=== PATIENT | female | born 1965 | race Caucasian/White ===

== ENCOUNTER → 2016-11-15 | Outpatient (CLI) | payer OTHER | LOC: BMCIMAGING 15:09 | PROVIDERS: ATTEND Internal Medicine | DX: Z12.31 Encounter for screening mammogram for malignant neoplasm of breast (principal); Z80.3 Family history of malignant neoplasm of breast | CPT/HCPCS: G0202 ==

== ENCOUNTER → 2017-12-03 | Outpatient (CLI) | payer OTHER | LOC: BMCIMAGING 07:21 | PROVIDERS: ATTEND Internal Medicine | DX: Z12.31 Encounter for screening mammogram for malignant neoplasm of breast (principal); Z80.3 Family history of malignant neoplasm of breast ==

== ENCOUNTER 2018-05-13 10:35 | Emergency (ER) | payer OTHER ==
--- NOTE | 2018-05-13 11:02 | EDPHY ---
HPI/HX/ROS/PE/MDM Narrative: CHIEF COMPLAINT: Hyponatremia HISTORY OF PRESENT ILLNESS: This patient is a 52 year old female with history of rheumatoid arthritis, hyponatremia, and depression. She arrives today with her neighbor for evaluation of hyponatremia after her PCP's office attempted to contact her with lab results earlier today. The patient herself reports that she feels completely asymptomatic now. She generally takes salt tablets for chronic hyponatremia and states she has been taking these as directed. The patient states she was unable to sleep last night until about 6am, and had disconnected her phone for that reason. She repeats that she feels well currently, though she endorses some constipation in the last few days. She denies history of hypertension, diabetes, kidney or liver problems. No fever, chills, chest pain, shortness of breath, palpitations, vomiting, diarrhea, urinary complaints, headache, lightheadedness. The patient's neighbor at bedside reports that the patient saw her subscription crew leader on Saturday and had routine lab work. The subscription crew leader reportedly called the PCP's office regarding results, including acute hyponatremia, and the PCP's office in turn tried to contact the patient. When they were unable to contact her, they called police for a welfare check. The patient's mother called the neighbor for assistance. There is some sense from the neighbor that patient is possibly an unreliable historian at this time. REVIEW OF SYSTEMS: A comprehensive 10 system review of systems is otherwise negative aside from elements mentioned in the history of present illness and medical decision making. PAST MEDICAL HISTORY: Rheumatoid arthritis. Depression (Klonopin, Ambien). History of hyponatremia. SOCIAL HISTORY: Neighbor at bedside. No tobacco, alcohol, or illicit drug use. PCP Dr. Arreaga. VITAL SIGNS: Reviewed by me GENERAL: Well-developed, well-nourished, resting comfortably in no respiratory distress. HEENT: Atraumatic. Eyes: No icterus, no injection. Mouth: dry teeth / mucous membranes. No erythema or lesions. Neck: supple with no adenopathy. LUNGS: Clear to auscultation bilaterally, no wheezes, rhonchi or rales. CARDIAC: Regular rate and rhythm, no rubs, murmurs or gallops. ABDOMEN: Soft, nontender, nondistended, bowel sounds normal. BACK: No CVA tenderness. EXTREMITIES: No trauma. No edema. Range of motion is normal throughout. NEURO: Alert and oriented, grossly nonfocal. SKIN: Warm and dry, no rash. PSYCHIATRIC: Normal mentation, no agitation. Portions of this note were transcribed by a biomedical manager. I personally performed a history, physical exam, medical decision making, and confirmed accuracy of information the transcribed note. ED Course: 52 y/o female with history of known hyponatremia presents for evaluation of acute low sodium. Dry mucous membranes on exam. Plan for labs including CBC, chemistries, UA, I-stat. 11:05 POC sodium low at 117. Plan to admit to ICU for management of hyponatremia. 12:20 Plan for repeat I-stat. 12:35 The hospital is currently on ICU advisory. Plan to transfer patient to another appropriate facility for hyponatremia. 12:[address] Mcintosh through [facility] regarding the patient. 12:57 Repeat POC sodium 120. Patient accepted at [facility] under Dr Vega. Transfered via ambance. Emtala form signed. Patient received a total of 1 liter NS over 2.5 hours in the ED MDM: Diff dx considered included hyponatremia, hypoglycemia, fluid overload, dehydration, lab error. - Data Points Laboratory Results: Laboratory Results 05/13/18 11:00 05/13/18 11:00 Medications Given: Discontinued Medications Sodium Chloride (Ns) 500 mls @ 500 mls/hr IV EDNOW ONE PRN Reason: Protocol Stop: 05/13/18 12:21 Last Admin: 05/13/18 11:30 Dose: 500 mls Sodium Chloride (Ns) 500 mls @ 1,000 mls/hr IV EDNOW ONE PRN Reason: Protocol Stop: 05/13/18 14:07 Last Admin: 05/13/18 14:12 Dose: 500 mls Point of Care Test Results: Chemistry 05/13/18 05/13/18 12:57 11:03 POC Sodium 120 mEq/L L mEq/L 117 mEq/L L* mEq/L (135-145) (135-145) POC Potassium 3.0 mEq/L L mEq/L 3.1 mEq/L L mEq/L (3.3-5.0) (3.3-5.0) POC Chloride 81 mEq/L L mEq/L 78 mEq/L L mEq/L (97-110) (97-110) POC BUN 12 mg/dL mg/dL 12 mg/dL mg/dL (7-23) (7-23) POC Creatinine 0.7 mg/dL mg/dL 0.8 mg/dL mg/dL (0.6-1.0) (0.6-1.0) POC Glucose 86 mg/dL mg/dL 93 mg/dL mg/dL (70-100) (70-100) ISTAT H&H 05/13/18 05/13/18 12:57 11:03 POC Hgb 15.3 gm/dL gm/dL 16.0 gm/dL gm/dL (12.6-16.3) (12.6-16.3) POC Hct 45 % % 47 % % (38-47) (38-47) General Time Seen by Provider: 05/13/18 10:47 Initial Vital Signs: Initial Vital Signs Temperature (C) 36.6 C 05/13/18 10:40 Heart Rate 73 05/13/18 10:40 Respiratory Rate 18 05/13/18 10:40 Blood Pressure 141/93 H 05/13/18 10:40 O2 Sat (%) 97 05/13/18 10:40 O2 Delivery Mode Room Air Allergies/Adverse Reactions: acetaminophen Allergy (Verified 05/13/18 10:40) "Skin Crawls" codeine Allergy (Verified 05/13/18 10:40) "Skin Crawls" diphenhydramine [From Benadryl] Allergy (Verified 05/13/18 10:40) Unknown promethazine [From Phenergan] Allergy (Verified 05/13/18 10:40) Unknown Home Medications: Medication Instructions Recorded Adalimumab [Humira] 40 mg SQ Q14D 01/23/18 Levothyroxine [Synthroid 100 mcg 100 mcg PO DAILY06 01/23/18 (*)] Sumatriptan Succinate [Imitrex] 100 mg PO DAILY PRN 01/23/18 Zolpidem Tartrate [Ambien] 10 mg PO HS 01/23/18 buPROPion XL [Wellbutrin 150mg XL] 300 mg PO DAILY 01/23/18 clonazePAM [klonoPIN (*)] 1.5 mg PO HS 01/23/18 Norgestimate-Ethinyl Estradiol 1 each PO DAILY 01/24/18 [Previfem Tablet] Sodium Bicarbonate [Na Bicarb] 650 mg PO TID 01/24/18 Gabapentin Enacarbil [Horizant] 1,200 mg PO DAILY@17 01/26/18 Departure - Departure Disposition: Acute Care Hospital Not [facility] Clinical Impression: Hyponatremia Condition: Fair Referrals: Angela Arreaga MD [Primary Care Provider] - As per Instructions Report Scribed for: Martha Jiménez Report Scribed by: Shelby Medina Date of Report: 05/13/18 Time of Report: 12:53
[2018-05-13 11:13] LABS: PLATELET COUNT 333 10^3/uL (150-400)
[2018-05-13] MEDS ORDERED: NS 500 ML IV ONE ×2 (11:22→13:38)
[2018-05-13 14:39] VITALS: BP 153/77
== END 2018-05-13 14:32 | disposition short-term general hospital (02) ==
DX: E87.1 Hypo-osmolality and hyponatremia (principal); E86.9 Volume depletion, unspecified
CPT/HCPCS: 82435-PO; 82565-PO; 82947-PO; 84132-PO; 84295-PO; 84520-PO; 85014-PO